=== PATIENT | male | born 1960 | race Caucasian/White ===

== ENCOUNTER 2024-02-25 08:54 | Day surgery (SDC) | payer BC ==
[2024-02-21 11:43] VITALS: BMI 53.8
== END 2024-02-25 17:00 | disposition home or self-care (01) ==
LOC: SDC 08:54
PROVIDERS: ATTEND Internal Medicine Gastroenterology
PROC: 0DBH8ZZ Excision of Cecum, Via Natural or Artificial Opening Endoscopic (ICD-10-PCS; principal; 2024-02-25)
DX: Z12.11 Encounter for screening for malignant neoplasm of colon (principal); K63.5 Polyp of colon; K57.30 Diverticulosis of large intestine without perforation or abscess without bleeding; K64.9 Unspecified hemorrhoids; E66.01 Morbid (severe) obesity due to excess calories; L40.9 Psoriasis, unspecified; Z79.899 Other long term (current) drug therapy; Z68.43 Body mass index [BMI] 50.0-59.9, adult
CPT/HCPCS: 88305; J2704